=== PATIENT | female | born 1945 | race Caucasian/White ===

== ENCOUNTER → 2016-05-06 | Outpatient (CLI) | payer MEDICARE, OTHER ==
[2016-05-06 09:42] LABS: HEMOGLOBIN 14.6 gm/dl (12.3-15.3); RED BLOOD COUNT 4.65 M/UL (4.00-5.10); WHITE BLOOD COUNT 5.6 K/UL (4.5-11.0)
[2016-05-06 11:15] LABS: BUN/CREATININE RATIO 19 (0-10)
== END ==
LOC: LAB 08:55
PROVIDERS: Nurse Practitioner
DX: I10 Essential (primary) hypertension (principal); R10.9 Unspecified abdominal pain; E78.5 Hyperlipidemia, unspecified
CPT/HCPCS: 36415; 80053; 80061; 84436; 84443; 84480; 85025

== ENCOUNTER → 2020-04-22 | Outpatient (CLI) | payer OTHER ==
[2020-04-22 10:20] LABS: HEMOGLOBIN 14.2 gm/dl (12.3-15.3); RED BLOOD COUNT 4.63 M/UL (4.00-5.10); WHITE BLOOD COUNT 3.6 K/UL (4.5-11.0)
[2020-04-22 10:45] LABS: BUN/CREATININE RATIO 19 (0-10)
[2020-04-23 10:14] LABS: HCV ANTIBODY <0.1 (0.0-0.9); THYROXINE (T4) 8.8 ug/dL (4.5-12.0); TRIIODOTHYRONINE (T3) 127 ng/dL (71-180)
== END ==
LOC: LAB 08:30
PROVIDERS: Nurse Practitioner
DX: E03.9 Hypothyroidism, unspecified (principal); E78.5 Hyperlipidemia, unspecified; T65.91XA Toxic effect of unspecified substance, accidental (unintentional), initial encounter
CPT/HCPCS: 36415; 80053; 80061; 84436; 84443; 84480; 85025; 86803

== ENCOUNTER → 2020-05-27 | Outpatient (CLI) | payer OTHER ==
[2020-05-28 08:13] LABS: HBSAG SCREEN Negative (Negative); HEP A AB, IGM Negative (Negative); HEP B CORE AB, IGM Negative (Negative); HEP C VIRUS AB <0.1 (0.0-0.9)
== END ==
LOC: LAB 10:48
PROVIDERS: Nurse Practitioner
DX: R94.5 Abnormal results of liver function studies (principal); M25.511 Pain in right shoulder
CPT/HCPCS: 36415; 73030; 80074; 80076

== ENCOUNTER → 2020-06-05 | Outpatient (CLI) | payer OTHER | LOC: EXRD 02-27 11:30 | DX: Z78.0 Asymptomatic menopausal state (principal); M85.88 Other specified disorders of bone density and structure, other site | CPT/HCPCS: 77080 ==

== ENCOUNTER → 2020-11-01 | Outpatient (CLI) | payer OTHER ==
[2020-11-01 12:28] LABS: HEMOGLOBIN 14.3 gm/dl (12.3-15.3); RED BLOOD COUNT 4.48 M/UL (4.00-5.10); WHITE BLOOD COUNT 4.5 K/UL (4.5-11.0)
[2020-11-01 14:26] LABS: BUN/CREATININE RATIO 18 (0-10)
[2020-11-02 09:13] LABS: THYROXINE (T4) 8.4 ug/dL (4.5-12.0); VITAMIN D, 25-HYDROXY 61.2 ng/mL (30.0-100.0)
== END ==
LOC: LAB 10:47
PROVIDERS: Nurse Practitioner
DX: E78.5 Hyperlipidemia, unspecified (principal); E03.9 Hypothyroidism, unspecified; R94.5 Abnormal results of liver function studies; R53.83 Other fatigue; K21.9 Gastro-esophageal reflux disease without esophagitis
CPT/HCPCS: 36415; 80053; 80061; 81001; 84436; 84443; 84480; 85025

== ENCOUNTER → 2021-01-15 | Outpatient (CLI) | payer OTHER ==
[2021-01-15 11:09] LABS: HEMOGLOBIN 14.1 gm/dl (12.3-15.3); RED BLOOD COUNT 4.46 M/UL (4.00-5.10); WHITE BLOOD COUNT 5.6 K/UL (4.5-11.0)
[2021-01-15 11:57] LABS: BUN/CREATININE RATIO 18 (0-10)
[2021-01-16 08:14] LABS: THYROXINE (T4) 7.6 ug/dL (4.5-12.0); VITAMIN D, 25-HYDROXY 63.4 ng/mL (30.0-100.0)
== END ==
LOC: LAB 09:11
PROVIDERS: Nurse Practitioner
DX: I10 Essential (primary) hypertension (principal); F41.9 Anxiety disorder, unspecified; E03.9 Hypothyroidism, unspecified; E78.5 Hyperlipidemia, unspecified; M25.511 Pain in right shoulder; E55.9 Vitamin D deficiency, unspecified
CPT/HCPCS: 36415; 80053; 80061; 81001; 84436; 84443; 84480; 85025

== ENCOUNTER → 2021-08-08 | Outpatient (CLI) | payer OTHER ==
[2021-08-08 08:32] LABS: HEMOGLOBIN 13.6 gm/dl (12.3-15.3); RED BLOOD COUNT 4.34 M/UL (4.00-5.10)
[2021-08-08 09:38] LABS: BUN/CREATININE RATIO 21 (0-10)
[2021-08-09 08:13] LABS: THYROXINE (T4) 7.9 ug/dL (4.5-12.0)
== END ==
LOC: LAB 07:45
PROVIDERS: Nurse Practitioner
DX: F41.9 Anxiety disorder, unspecified (principal); K21.00 Gastro-esophageal reflux disease with esophagitis, without bleeding; E03.9 Hypothyroidism, unspecified; E78.5 Hyperlipidemia, unspecified; I10 Essential (primary) hypertension; R53.83 Other fatigue
CPT/HCPCS: 36415; 80053; 80061; 81001; 84436; 84443; 84480; 85025

== ENCOUNTER 2021-10-07 15:53 | Emergency (ER) | payer OTHER ==
[2021-10-07 17:44] LABS: HEMOGLOBIN 14.2 gm/dl (12.3-15.3); RED BLOOD COUNT 4.51 M/UL (4.00-5.10); WHITE BLOOD COUNT 8.5 K/UL (4.5-11.0)
[2021-10-07 18:04] LABS: BUN/CREATININE RATIO 18 (0-10)
[2021-10-07] MEDS ORDERED: PROVENTIL HFA6.7 GM INH (19:16)
== END 2021-10-07 20:10 | disposition home or self-care (01) ==
LOC: ER1 15:53
PROVIDERS: Physician Assistant
DX: U07.1 COVID-19 (principal); Z23 Encounter for immunization
CPT/HCPCS: 0240U; 71045; 80053; 85025; 99283; M0222